=== PATIENT | female | born 1990 | race African-American/Black ===

== ENCOUNTER 2021-09-28 04:50 | Inpatient (IN) | payer OTHER ==
[2021-09-28] MEDS ORDERED: DEXTROSE 5%-LACTATED RINGERS 500 ML IV ONE (05:30)
[2021-09-28] MEDS ORDERED: DEXTROSE 5%-LACTATED RINGERS 1,000 ML IV SCH (06:30)
[2021-09-28 06:39] VITALS: BMI 34.3
[2021-09-28 07:48] LABS: CALCIUM 8.8 mg/dL (8.5-10.1)
[2021-09-28 07:49] LABS: BLOOD UREA NITROGEN 4.3 mg/dL (7-18); INR 0.91 (0.83-1.09); PROTHROMBIN TIME (PATIENT) 10.4 SEC (9.7-13.0)
[2021-09-28 07:52] LABS: ACTIVATED PTT 19.7 SECONDS (25.2-36.5); CREATININE 0.6 mg/dL (0.55-1.3)
[2021-09-28 08:45] LABS: BASO % 0.9 % (0-2.0); EOS % 1.3 % (0-4.5); HEMATOCRIT 33.8 % (32.4-45.2); HEMOGLOBIN 11.1 GM/dL (10.7-15.3); LYMPH % 22.4 % (8-40); MCH 28.6 pg (25.7-33.7); MCHC 32.8 g/dl (32.0-36.0); MEAN CELL VOLUME 87.2 fl (80-96); MEAN PLT VOLUME 10.4 fl (7.5-11.1); MONO % 8.1 % (3.8-10.2); NEUT % 67.3 % (42.8-82.8); PLATELET COUNT 80 10^3/uL (134-434); RBC 3.87 M/mm3 (3.60-5.2); RDW 15.9 % (11.6-15.6); WHITE BLOOD COUNT 6.3 K/mm3 (4.0-10.0)
[2021-09-28 08:46] LABS: COCAINE, UR NEGATIVE (NEGATIVE); METHADONE, UR NEGATIVE (NEGATIVE)
[2021-09-28 08:47] LABS: OPIATES, URI NEGATIVE (NEGATIVE); PHENCYCLIDINE,URINE NEGATIVE (NEGATIVE); URINE BARBITURATES NEGATIVE (NEGATIVE)
[2021-09-28 08:48] LABS: URINE AMPHETAMINES NEGATIVE (NEGATIVE); URINE BENZODIAZEPINES NEGATIVE (NEGATIVE)
[2021-09-28] MEDS: ELECTROLYTE-148 SOLN 1,000 ML IV SCH ×2 (09:15→13:00)
[2021-09-28] MEDS ORDERED: FENTANYL/BUPIVACAINE/NS/PF - PCEA - 50 ML DISP.SYRIN EP ONE ×2 (09:18→15:08)
[2021-09-28 10:11] LABS: BASO % 0.4 % (0-2.0); EOS % 0.4 % (0-4.5); HEMOGLOBIN 12.3 GM/dL (10.7-15.3); LYMPH % 16.1 % (8-40); MCH 28.6 pg (25.7-33.7); MCHC 33.2 g/dl (32.0-36.0); MEAN CELL VOLUME 86.1 fl (80-96); MEAN PLT VOLUME 9.7 fl (7.5-11.1); NEUT % 73.1 % (42.8-82.8); PLATELET COUNT 199 10^3/uL (134-434); RDW 16.1 % (11.6-15.6); WHITE BLOOD COUNT 10.1 K/mm3 (4.0-10.0)
[2021-09-28 10:19] LABS: RETICULOCYTES 1.82 % (0.5-1.5)
[2021-09-28] MEDS ORDERED: NALOXONE HCL 0.4 MG/ML VIAL IVPUSH PRN (10:59)
[2021-09-28] MEDS ORDERED: FENTANYL/BUPIVACAINE/NS/PF - PCEA - 50 ML DISP.SYRIN EP SCH (11:00)
[2021-09-28] MEDS ORDERED: OXYTOCIN 30 UNITS in 0.9% NS 30 UNIT/500 ML INFUS.BAG IVPB SCH (11:30)
[2021-09-28] MEDS ORDERED: CLINDAMYCIN 900 MG PREMIX IVPB 900 MG/50 ML BAG IVPB ONE ×2 (15:34→15:37)
[2021-09-28] MEDS ORDERED: GENTAMICIN SO4 80 MG/2 ML VIAL ONE (15:34)
[2021-09-28] MEDS ORDERED: OXYTOCIN 20 UNITS in 0.9% NS 20 UNIT/1,000 ML INFUS.BAG IV ONE ×2 (15:38→18:09)
[2021-09-28] MEDS ORDERED: ONDANSETRON 4 MG/2 ML VIAL ONE (15:39)
[2021-09-28] MEDS ORDERED: PHENYLEPHRINE HCL 10 MG/1 ML SINGLE DOSE VIAL ONE (15:39)
[2021-09-28] MEDS ORDERED: CITRIC ACID/SODIUM CITRATE 30 ML UNIT-DOSE CUP PO ONE (15:39)
[2021-09-28] MEDS ORDERED: morphine SULFATE/PF 1 MG/2 ML (2cc Syringe - QUVA) ONE ×3 (15:39)
[2021-09-28] MEDS ORDERED: ePHEDrine SULFATE 50 MG/1 ML AMPULE ONE (15:39)
[2021-09-28] MEDS ORDERED: ACETAMINOPHEN 325 MG TABLET (FP) PO PRN (15:40)
[2021-09-28] MEDS ORDERED: METHYLERGONOVINE MALEATE 0.2 MG/1 ML AMP IM PRN (15:40)
[2021-09-28] MEDS ORDERED: GENTAMICIN INJECTION 100 MG in DEXTROSE 5%-WATER - 250 ML IVPB ONE (15:45)
[2021-09-28] MEDS ORDERED: LIDOCAINE HCL/EPINEPHRINE/PF 20 ML VIAL ONE (15:45)
[2021-09-28] MEDS ORDERED: ONDANSETRON 4 MG/2 ML VIAL IVPUSH PRN (16:02)
[2021-09-28] MEDS ORDERED: morphine SULFATE/PF 1 MG/2 ML (2cc Syringe - QUVA) EP ONE (16:04)
[2021-09-28] MEDS ORDERED: ACETAMINOPHEN 1000 MG/100 ML BAG IVPB ONE (16:06)
[2021-09-28 17:12] LABS: CORD HCO3 19.7 mmHg (20-29); CORD PCO2 51.1 mmHg (30-78); CORD pH 7.205 (7.14-7.44)
[2021-09-28 17:15] LABS: CORD BASE EXCESS -4.7 mmol/L (0-2); CORD HCO3 21.9 mmHg (20-29); CORD PCO2 45.8 mmHg (30-78); CORD pH 7.297 (7.14-7.44)
[2021-09-28] MEDS: OXYTOCIN 20 UNITS in 0.9% NS 20 UNIT/1,000 ML INFUS.BAG IV SCH (18:10)
[2021-09-28] MEDS: CLINDAMYCIN 600MG PREMIX IVPB 600 MG/50 ML BAG IVPB SCH (22:33)
[2021-09-29] MEDS ORDERED: OXYTOCIN 20 UNITS in 0.9% NS 20 UNIT/1,000 ML INFUS.BAG IV ONE (03:17)
[2021-09-29] MEDS: OXYTOCIN 20 UNITS in 0.9% NS 20 UNIT/1,000 ML INFUS.BAG IV SCH (03:20)
[2021-09-29] MEDS ORDERED: oxyCODONE HCL 5 MG TABLET PO PRN ×2 (03:43)
[2021-09-29] MEDS: CLINDAMYCIN 600MG PREMIX IVPB 600 MG/50 ML BAG IVPB SCH ×2 (06:32→15:27)
[2021-09-29] MEDS: SIMETHICONE 80 MG TAB.CHEW (FP) PO PRN ×2 (09:14→18:47)
[2021-09-29] MEDS: ENOXAPARIN NA (PORCINE) 40 MG/0.4 ML DISP.SYRIN SQ SCH (09:14)
[2021-09-29] MEDS ORDERED: BISACODYL 10 MG SUPP.RECT RC PRN (15:43)
[2021-09-29] MEDS: IBUPROFEN 600 MG TABLET (FP) PO PRN (21:23)
[2021-09-30] MEDS: IBUPROFEN 600 MG TABLET (FP) PO PRN ×2 (05:49→18:03)
[2021-09-30] MEDS: ENOXAPARIN NA (PORCINE) 40 MG/0.4 ML DISP.SYRIN SQ SCH (10:52)
[2021-09-30 12:07] VITALS: BP 102/70; PULSE 85; RESP 18; TEMP 97.8
[2021-09-30] MEDS: SIMETHICONE 80 MG TAB.CHEW (FP) PO PRN (18:04)
== END 2021-09-30 21:45 | disposition home or self-care (01) | DRG 540 ==
LOC: JDEL 04:50 → JLDR 06:15 → J3W 19:39
PROVIDERS: ADMIT Obstetrics & Gynecology; ATTEND Obstetrics & Gynecology
PROC: 10D00Z1 Extraction of Products of Conception, Low, Open Approach (ICD-10-PCS; principal; 2021-09-28)
DX: O36.8330 Maternal care for abnormalities of the fetal heart rate or rhythm, third trimester, not applicable or unspecified (principal); O48.0 Post-term pregnancy; Z3A.40 40 weeks gestation of pregnancy; Z37.0 Single live birth
CPT/HCPCS: 36415; 36600; 80048; 80307; 82803; 82977; 83010; 84450; 84460; 84550; 85025; 85032; 85045; 85610; 85730; 86780; 86850; 86900; 86901; 88307-TC; C9803-CS; U0003; U0005

== ENCOUNTER 2022-12-05 04:27 | Day surgery (SDC) | payer OTHER ==
[2022-12-01 11:47] VITALS: BMI 34.9
[2022-12-05] MEDS ORDERED: oxyCODONE HCL 5 MG TABLET PO PRN (11:50)
[2022-12-05] MEDS ORDERED: PROMETHAZINE HCL 25 MG/1 ML VIAL IVPB PRN (11:50)
[2022-12-05] MEDS ORDERED: ONDANSETRON 4 MG/2 ML VIAL IVPUSH PRN (11:50)
[2022-12-05] MEDS ORDERED: LACTATED RINGERS SOLUTION 1,000 ML IV SCH (12:00)
[2022-12-05] MEDS ORDERED: SUCCINYLCHOLINE CHLORIDE 200 MG/10 ML SYRINGE ONE (13:18)
[2022-12-05] MEDS ORDERED: PROPOFOL 40 ML ONE (13:18)
[2022-12-05] MEDS ORDERED: MIDAZOLAM HCL 2 MG/2 ML SINGLE DOSE VIAL ONE (13:19)
[2022-12-05] MEDS ORDERED: CLINDAMYCIN PHOSPHATE 600 MG/4 ML VIAL ONE (13:56)
[2022-12-05] MEDS ORDERED: CLINDAMYCIN PHOSPHATE 600 MG/4 ML VIAL IVPB ONE (14:00)
[2022-12-05 15:48] VITALS: RESP 18; TEMP 97.8
[2022-12-05 16:21] VITALS: BP 126/73; PULSE 80
== END 2022-12-05 16:35 | disposition home or self-care (01) ==
LOC: JASU-SURG 04:27
PROVIDERS: ATTEND Obstetrics & Gynecology
PROC: 0U5B8ZZ Destruction of Endometrium, Via Natural or Artificial Opening Endoscopic (ICD-10-PCS; principal; 2022-12-05 11:00)
DX: N92.1 Excessive and frequent menstruation with irregular cycle (principal); N84.0 Polyp of corpus uteri
CPT/HCPCS: 81025; 88305-TC; 94760